=== PATIENT | male | born 1990 | race African-American/Black ===

== ENCOUNTER 2019-05-02 07:22 | Emergency (ER) | payer SELFPAY ==
--- NOTE | 2019-05-02 07:47 | EDM.PDOC ---
ED HPI GENERAL MEDICAL PROBLEM - General Chief Complaint: Skin Complaint Stated Complaint: BUMP UNDER RIGHT ARMPIT Time Seen by Provider: 05/02/19 07:44 - History of Present Illness INITIAL COMMENTS - FREE TEXT/NARRATIVE: HISTORY AND PHYSICAL: History of present illness: Patient 28-year-old male presents with a concern of axillary abscess and worse over the last 1 week. He has had some spontaneous drainage of purulent material denies fever chills nausea vomiting Review of systems: As per history of present illness and below otherwise all systems reviewed and negative. Past medical history: As per history of present illness and as reviewed below otherwise noncontributory. Surgical history: As per history of present illness and as reviewed below otherwise noncontributory. Social history: No reported history of drug or alcohol abuse. Family history: As per history of present illness and as reviewed below otherwise noncontributory. Physical exam: HEENT: Atraumatic, normocephalic, pupils reactive, negative for conjunctival pallor or scleral icterus, mucous membranes moist, throat clear, neck supple, nontender, trachea midline. Lungs: Clear to auscultation, breath sounds equal bilaterally, right axilla has a subcutaneous abscess with spontaneous drainage noted fluctuant area of approximately 1/2 cm Heart: S1S2, regular, negative for clicks, rubs, or JVD. Abdomen: Soft, nondistended, nontender. Negative for masses or hepatosplenomegaly. Negative for costovertebral tenderness. Pelvis: Stable nontender. Genitourinary: Deferred. Rectal: Deferred. Extremities: Atraumatic, negative for cords or calf pain. Neurovascular unremarkable. Neuro: Awake, alert, oriented. Cranial nerves II through XII unremarkable. Cerebellum unremarkable. Motor and sensory unremarkable throughout. Exam nonfocal. Diagnostics: None Therapeutics: Patient was anesthetized 1% lidocaine prepped and draped in sterile manner with 11 blade scalpel incision and drainage of abscess with approximately 3 mL of nini pus was returned wound was packed with iodoform gauze Impression: #1 axillary abscess status post incision and drainage Definitive disposition and diagnosis as appropriate pending reevaluation and review of above. Right Armpit Pain Score (Numeric/FACES): 5 - Related Data Allergies Allergy/AdvReac Type Severity Reaction Status Date / Time No Known Allergies Allergy Verified 05/02/19 07:30 Home Meds: Home Meds FLUoxetine [PROzac] 10 mg PO BID 05/02/19 [History] OXcarbazepine [Oxcarbazepine] 300 mg PO BID 05/02/19 [History] Past Medical History Psychiatric History: Reports: Bipolar, Depression - Infectious Disease History Infectious Disease History: Reports: None Social & Family History - Family History Family Medical History: Noncontributory - Tobacco Use Smoking Status *Q: Never Smoker - Caffeine Use Caffeine Use: Reports: None - Recreational Drug Use Recreational Drug Use: No ED ROS GENERAL - Review of Systems Review Of Systems: ROS reveals no pertinent complaints other than HPI. ED EXAM, SKIN/RASH Exam: See Below (Dictation) Course - Vital Signs Last Recorded V/S: Last Vital Signs Temp 36.2 C 05/02/19 07:32 Pulse 83 05/02/19 07:32 Resp 16 05/02/19 07:32 BP 135/88 05/02/19 07:32 Pulse Ox 95 05/02/19 07:32 - Orders/Labs/Meds Meds: Medications Discontinued Medications Generic Name Dose Route Start Last Admin Trade Name Ifrah PRN Reason Stop Dose Admin Lidocaine HCl Confirm 05/02/19 07:34 Xylocaine-Mpf 1% Administered 05/02/19 07:35 Dose 5 ml .ROUTE .STK-MED ONE Lidocaine HCl 5 ml 05/02/19 07:43 Xylocaine-Mpf 1% INJECT 05/02/19 07:44 ONETIME ONE Departure - Departure Time of Disposition: 07:46 Disposition: Home, Self-Care 01 Condition: Good Clinical Impression: Abscess - Discharge Information Referrals: PCP,None [Primary Care Provider] - Additional Instructions: The following information is given to patients seen in the emergency department who are being discharged to home. This information is to outline your options for follow-up care. We provide all patients seen in our emergency department with a follow-up referral. The need for follow-up, as well as the timing and circumstances, are variable depending upon the specifics of your emergency department visit. If you don't have a primary care physician on staff, we will provide you with a referral. We always advise you to contact your personal physician following an emergency department visit to inform them of the circumstance of the visit and for follow-up with them and/or the need for any referrals to a consulting specialist. The emergency department will also refer you to a specialist when appropriate. This referral assures that you have the opportunity for followup care with a specialist. All of these measure are taken in an effort to provide you with optimal care, which includes your followup. Under all circumstances we always encourage you to contact your private physician who remains a resource for coordinating your care. When calling for followup care, please make the office aware that this follow-up is from your recent emergency room visit. If for any reason you are refused follow-up, please contact the [facility] emergency department at and asked to speak to the emergency department charge nurse. Wound care as discussed packing 24 hours follow-up 24-48 hours return as needed as discussed
== END 2019-05-02 07:58 | disposition home or self-care (01) ==
LOC: MW.ED 07:22
DX: L02.411 Cutaneous abscess of right axilla (principal); F32.9 Major depressive disorder, single episode, unspecified; Z79.899 Other long term (current) drug therapy
CPT/HCPCS: 10060; 99283; J2001

== ENCOUNTER 2019-05-04 00:11 | Emergency (ER) | payer SELFPAY | END 2019-05-04 00:47 | disposition home or self-care (01) | LOC: MW.ED 00:11 | DX: Z48.817 Encounter for surgical aftercare following surgery on the skin and subcutaneous tissue (principal) | CPT/HCPCS: 99282 ==